=== PATIENT | female | born 1940 | race Two or more races ===

== ENCOUNTER 2024-10-31 07:57 | Inpatient (IN) | payer OTHER ==
[~2024-10-31] VITALS: Ht 165.1 cm; Wt 52.2 kg
[2024-10-31] MEDS ORDERED: LISINOPRIL10 MG PO (08:12)
[2024-10-31] MEDS ORDERED: LEVETIRACETAM250 MG PO (08:12)
[2024-10-31] MEDS ORDERED: METOPROLOL SUCC25 MG PO (08:12)
[2024-10-31] MEDS ORDERED: ACETAMINOPHEN 325 MG TABLET PO ONE (09:15)
[2024-10-31] MEDS ORDERED: 0.9 % SODIUM CHLORIDE 1,000 ML IV ONE (09:15)
[2024-10-31] MEDS ORDERED: PIPERACILLIN/TAZOBACTAM SODIUM 3.375 GM VIAL IV ONE (09:15)
[2024-10-31] MEDS ORDERED: PANTOPRAZOLE SODIUM 40 MG/VIAL VIAL IV ONE (09:15)
[2024-10-31 10:30] LABS: INR 1.16
[2024-10-31 10:34] LABS: ALT/SGPT 11.0 U/L (12-78); AST/SGOT 18.0 U/L (15-37); BILIRUBIN TOTAL 0.36 mg/dL (0.3-1.2); BUN CREA RATIO 17.0 (7.0-25.0); CREATININE SERUM 0.7 mg/dL (0.55-1.02); GFR 80.11; GLOBULINA 6.3 G/DL (2.4-3.5); GLUCOSE FASTING 92.0 mg/dL (65-100); OSMOLALITY SERUM 271.0 MOSM/KG (275-295)
[2024-10-31 11:35] LABS: BASO % 0.2 % (0.1-1.2); EOS # 0.02 (0.04-0.54); EOS % 0.1 % (0.7-7.0); LYMPH # 1.24 (1.18-3.74); LYMPH % 4.6 % (19.3-53.1); MEAN PLATELET VOLUME 9.10 fl (9.4-12.4); MONO # 1.34 (0.24-0.82); MONO % 4.9 % (4.7-12.5); NEUT # 24.41 (1.56-6.13); NEUT % 89.5 % (34.0-71.1); RED CELL DISTRIBUTION WIDTH 15.1 % (11.6-14.4)
[2024-10-31 14:26] LABS: URINE APPEARANCE Turbid; URINE BILIRRUBIN Negative (NEGATIVE); URINE BLOOD Moderate; URINE COLOR Dark Yellow; URINE GLUCOSE Negative (NEGATIVE); URINE KETONE Negative (NEGATIVE); URINE LEUKOCYTE Large; URINE NITRATE Negative; URINE UROBILINOGEN 0.2 E.U./dl
[2024-10-31 14:31] LABS: URINE BACTERIA 6215.1 uL (0.0-1933); URINE RBC 61.2 uL (0.0-20.8)
[2024-10-31 14:58] LABS: TYPE CELLS SQUAMOUS; URINE CAST 1.05 uL (0.0-1.40); URINE EPITHELIAL CELLS > 201.7 uL (0.0-38.8); URINE PROTEIN 100 (NEGATIVE); URINE WBC > 5548.3 uL (0.0-23.2)
[2024-10-31] MEDS ORDERED: ONDANSETRON HCL 2 MG/ML VIAL IV PRN (17:15)
[2024-10-31] MEDS ORDERED: RINGERS SOLUTION,LACTATED 1,000 ML IV SCH (17:15)
[2024-10-31] MEDS ORDERED: MORPHINE SULFATE 4 MG/ML VIAL IV PRN (17:15)
[2024-10-31] MEDS ORDERED: MORPHINE SULFATE 4 MG/ML CARTRIDGE IV PRN (17:45)
[2024-10-31] MEDS ORDERED: PIPERACILLIN/TAZOBACTAM SODIUM 3.375 GM in 0.9 % SODIUM CHLORIDE 100 ML IV SCH (18:00)
[2024-10-31 19:31] LABS: BASO % 0.2 % (0.1-1.2); EOS # 0.02 (0.04-0.54); EOS % 0.1 % (0.7-7.0); LYMPH # 1.37 (1.18-3.74); LYMPH % 5.5 % (19.3-53.1); MEAN PLATELET VOLUME 8.40 fl (9.4-12.4); MONO # 1.13 (0.24-0.82); MONO % 4.6 % (4.7-12.5); NEUT # 21.94 (1.56-6.13); NEUT % 88.9 % (34.0-71.1); RED CELL DISTRIBUTION WIDTH 15.0 % (11.6-14.4)
[2024-10-31 19:59] LABS: FECAL LEUKOCYTES POSITIVE (NEGATIVE); ob POSITIVE (NEGATIVE)
[2024-10-31 20:04] LABS: INR 1.14
[2024-10-31 20:13] LABS: ALT/SGPT 9.0 U/L (12-78); AST/SGOT 20.0 U/L (15-37); BILIRUBIN TOTAL 0.39 mg/dL (0.3-1.2); BUN CREA RATIO 16.0 (7.0-25.0); CREATININE SERUM 0.73 mg/dL (0.55-1.02); GFR 76.32; GLOBULINA 5.4 G/DL (2.4-3.5); GLUCOSE FASTING 91.0 mg/dL (65-100); OSMOLALITY SERUM 271.0 MOSM/KG (275-295)
[2024-10-31 20:20] VITALS: BP 146/78; O2SAT 96
[2024-10-31] MEDS ORDERED: FAMOTIDINE/PF 20 MG/2 ML VIAL IV SCH (21:00)
[2024-10-31 21:09] VITALS: BP 134/72
[2024-11-01 00:50] VITALS: BP 141/75; O2SAT 95
[2024-11-01 06:52] LABS: BASO % 0.2 % (0.1-1.2); EOS # 0.01 (0.04-0.54); EOS % 0.0 % (0.7-7.0); LYMPH # 1.27 (1.18-3.74); LYMPH % 5.0 % (19.3-53.1); MEAN PLATELET VOLUME 8.90 fl (9.4-12.4); MONO # 1.45 (0.24-0.82); MONO % 5.7 % (4.7-12.5); NEUT # 22.53 (1.56-6.13); NEUT % 88.4 % (34.0-71.1); RED CELL DISTRIBUTION WIDTH 15.2 % (11.6-14.4)
[2024-11-01 07:36] LABS: BUN CREA RATIO 15.0 (7.0-25.0); CREATININE SERUM 0.72 mg/dL (0.55-1.02); GFR 77.55; GLUCOSE FASTING 68.0 mg/dL (65-100); OSMOLALITY SERUM 272.0 MOSM/KG (275-295)
[2024-11-01] MEDS ORDERED: AMINO ACIDS/PROTEIN HYDROLYS 30 ML BLIST.PACK PO SCH (09:00)
[2024-11-01] MEDS ORDERED: LACTOBACILLUS ACIDOPHILUS 1 CAP CAP PO SCH (09:00)
[2024-11-01] MEDS ORDERED: MEGESTROL ACETATE 400 MG/10 ML BLIST PACK PO SCH (09:00)
[2024-11-01] MEDS ORDERED: MULTIVIT INFUSN,ADULT 4,VIT K 10 ML VIAL IV SCH (09:00)
[2024-11-01 09:06] VITALS: BP 137/70; O2SAT 97
[2024-11-01] MEDS ORDERED: MEGESTROL ACETATE 400 MG/10 ML BLIST PACK PO NR (13:45)
[2024-11-01] MEDS ORDERED: ENALAPRILAT DIHYDRATE 1.25 MG/ML VIAL IV PRN (14:00)
[2024-11-01] MEDS ORDERED: METOPROLOL SUCCINATE 25 MG TAB.SR.24H PO NR (14:15)
[2024-11-01] MEDS ORDERED: Cyanocobalamin/Mecobalamin 1 TAB.SL SL NR (14:15)
[2024-11-01] MEDS ORDERED: SOD FERRIC GLUC COMPLX/SUCROSE 62.5 MG in 0.9 % SODIUM CHLORIDE 50 ML IV NR (14:15)
[2024-11-01 16:25] VITALS: BP 135/72; O2SAT 95
[2024-11-01] MEDS ORDERED: AMINO ACIDS 1 EACH TABLET PO SCH (17:00)
[2024-11-01] MEDS ORDERED: ENOXAPARIN SODIUM 40 MG/0.4 ML SYRINGE SUBCUTANEO SCH (17:00)
[2024-11-01] MEDS ORDERED: EMOLLIENT COMBINATION NO.92 2.5 OZ BOTTLE TOP SCH (17:00)
[2024-11-01] MEDS ORDERED: MEROPENEM 500 MG/VIAL VIAL IV SCH (18:00)
[2024-11-01] MEDS ORDERED: VANCOMYCIN HCL 5 MG/ML REDILUIDO IV SCH (21:00)
[2024-11-02 01:34] VITALS: BP 108/73; O2SAT 97
[2024-11-02] MEDS ORDERED: METOPROLOL SUCCINATE 25 MG TAB.SR.24H PO SCH (09:00)
[2024-11-02] MEDS ORDERED: Cyanocobalamin/Mecobalamin 1 TAB.SL SL SCH (09:00)
[2024-11-02] MEDS ORDERED: SOD FERRIC GLUC COMPLX/SUCROSE 62.5 MG in 0.9 % SODIUM CHLORIDE 50 ML IV SCH (09:00)
[2024-11-02 17:27] VITALS: BP 139/77; O2SAT 98
[2024-11-03 01:22] VITALS: BP 120/79; O2SAT 99
[2024-11-03 07:49] LABS: ALT/SGPT 7.0 U/L (12-78); AST/SGOT 15.0 U/L (15-37); BILIRUBIN TOTAL 0.47 mg/dL (0.3-1.2); BUN CREA RATIO 12.0 (7.0-25.0); CREATININE SERUM 0.5 mg/dL (0.55-1.02); GFR 118.12; GLOBULINA 4.4 G/DL (2.4-3.5); GLUCOSE FASTING 89.0 mg/dL (65-100); OSMOLALITY SERUM 269.0 MOSM/KG (275-295)
[2024-11-03 08:25] LABS: BASO % 0.3 % (0.1-1.2); EOS # 0.01 (0.04-0.54); EOS % 0.0 % (0.7-7.0); LYMPH # 1.32 (1.18-3.74); LYMPH % 5.0 % (19.3-53.1); MEAN PLATELET VOLUME 9.00 fl (9.4-12.4); MONO # 1.62 (0.24-0.82); MONO % 6.1 % (4.7-12.5); NEUT # 23.16 (1.56-6.13); NEUT % 87.9 % (34.0-71.1); RED CELL DISTRIBUTION WIDTH 14.6 % (11.6-14.4)
[2024-11-03 08:53] VITALS: BP 154/71; O2SAT 97
[2024-11-03] MEDS ORDERED: POTASSIUM CHLORIDE IN WATER 100 ML IV NR (13:00)
[2024-11-03 16:22] VITALS: BP 134/74; O2SAT 97
[2024-11-04 00:30] VITALS: BP 111/69; O2SAT 98
[2024-11-04 08:57] VITALS: BP 130/67; O2SAT 99
[2024-11-04] MEDS ORDERED: ACETAMINOPHEN 500 MG GEL..CAP PO SCH (14:48)
[2024-11-04] MEDS ORDERED: MEPERIDINE HCL/PF 25 MG/ML VIAL IV PRN (15:00)
[2024-11-04 16:14] VITALS: BP 149/75; O2SAT 99
[2024-11-05 01:02] VITALS: BP 116/69; O2SAT 99
[2024-11-05 06:48] LABS: BASO % 0.2 % (0.1-1.2); EOS # 0.02 (0.04-0.54); EOS % 0.1 % (0.7-7.0); LYMPH # 0.99 (1.18-3.74); LYMPH % 5.7 % (19.3-53.1); MEAN PLATELET VOLUME 8.80 fl (9.4-12.4); MONO # 1.10 (0.24-0.82); MONO % 6.4 % (4.7-12.5); NEUT # 15.04 (1.56-6.13); NEUT % 86.8 % (34.0-71.1); RED CELL DISTRIBUTION WIDTH 15.9 % (11.6-14.4)
[2024-11-05 07:35] LABS: ALT/SGPT 12.0 U/L (12-78); AST/SGOT 21.0 U/L (15-37); BILIRUBIN TOTAL 0.48 mg/dL (0.3-1.2); BUN CREA RATIO 22.0 (7.0-25.0); CREATININE SERUM 0.36 mg/dL (0.55-1.02); GFR 172.57; GLOBULINA 3.6 G/DL (2.4-3.5); GLUCOSE FASTING 82.0 mg/dL (65-100); OSMOLALITY SERUM 284.0 MOSM/KG (275-295)
[2024-11-05 08:00] VITALS: BP 176/84; O2SAT 97
[2024-11-05] MEDS ORDERED: POTASSIUM CHLORIDE 20MEQ/100ML H2O PB IV NR (10:15)
[2024-11-05 11:18] LABS: FOLIC ACID 6.27 ng/ml (4.78-20)
[2024-11-05 16:00] VITALS: BP 168/78; O2SAT 98
[2024-11-05] MEDS ORDERED: VANCOMYCIN HCL 1,000 MG VIAL IV SCH (21:00)
[2024-11-05 21:10] LABS: URINE APPEARANCE Turbid; URINE BILIRRUBIN Negative (NEGATIVE); URINE BLOOD Moderate; URINE COLOR Yellow; URINE GLUCOSE Negative (NEGATIVE); URINE KETONE Trace (NEGATIVE); URINE LEUKOCYTE Large; URINE NITRATE Negative; URINE PROTEIN 30 (NEGATIVE); URINE UROBILINOGEN 0.2 E.U./dl
[2024-11-05 21:11] LABS: URINE BACTERIA 9469.2 uL (0.0-1933); URINE EPITHELIAL CELLS 48.7 uL (0.0-38.8); URINE RBC 14.8 uL (0.0-20.8)
[2024-11-05 21:20] LABS: URINE CAST 0.26 uL (0.0-1.40); URINE WBC > 5548.3 uL (0.0-23.2)
[2024-11-05 21:35] VITALS: BP 181/81
[2024-11-06 01:02] VITALS: BP 179/72; O2SAT 98
[2024-11-06] MEDS ORDERED: ENOXAPARIN SODIUM 60 MG/0.6 ML SYRINGE SUBCUTANEO SCH (09:00)
[2024-11-06] MEDS ORDERED: LISINOPRIL 10 MG TABLET PO SCH (09:00)
[2024-11-06 09:48] VITALS: BP 167/76; O2SAT 98
[2024-11-06] MEDS ORDERED: VANCOMYCIN HCL 1,000 MG VIAL ONE (15:37)
[2024-11-06 16:29] VITALS: BP 148/75; O2SAT 94
[2024-11-07 01:33] VITALS: BP 148/76; O2SAT 98
[2024-11-07] MEDS ORDERED: VANCOMYCIN HCL 1,000 MG VIAL ONE (06:08)
[2024-11-07 07:01] LABS: BASO % 0.2 % (0.1-1.2); EOS # 0.06 (0.04-0.54); EOS % 0.4 % (0.7-7.0); LYMPH # 1.71 (1.18-3.74); LYMPH % 10.2 % (19.3-53.1); MEAN PLATELET VOLUME 8.90 fl (9.4-12.4); MONO # 1.01 (0.24-0.82); MONO % 6.0 % (4.7-12.5); NEUT # 13.93 (1.56-6.13); NEUT % 82.8 % (34.0-71.1); RED CELL DISTRIBUTION WIDTH 16.2 % (11.6-14.4)
[2024-11-07 07:17] LABS: ALT/SGPT 10.0 U/L (12-78); AST/SGOT 14.0 U/L (15-37); BILIRUBIN TOTAL 0.24 mg/dL (0.3-1.2); BUN CREA RATIO 21.0 (7.0-25.0); CREATININE SERUM 0.42 mg/dL (0.55-1.02); GFR 144.44; GLOBULINA 4.3 G/DL (2.4-3.5); GLUCOSE FASTING 79.0 mg/dL (65-100); OSMOLALITY SERUM 288.0 MOSM/KG (275-295)
[2024-11-07 08:00] VITALS: BP 170/80; O2SAT 97
[2024-11-07] MEDS ORDERED: MAGNESIUM SULFATE IN WATER 50 ML IV NR (12:00)
[2024-11-07] MEDS ORDERED: POTASSIUM CHLORIDE 20MEQ/100ML H2O PB IV NR (12:00)
[2024-11-07] MEDS ORDERED: SODIUM CHLORIDE 0.45 % 1,000 ML IV SCH (12:00)
[2024-11-07 17:34] VITALS: BP 140/73; O2SAT 99
[2024-11-08 00:40] VITALS: BP 139/81; O2SAT 98
[2024-11-08 08:00] VITALS: BP 160/82; O2SAT 98
[2024-11-08] MEDS ORDERED: LISINOPRIL 10 MG TABLET PO STA (11:11)
[2024-11-08 16:48] VITALS: BP 148/83; O2SAT 97
[2024-11-09] VITALS: BP 138/72; O2SAT 97
[2024-11-09 07:17] LABS: BASO % 0.2 % (0.1-1.2); EOS # 0.07 (0.04-0.54); EOS % 0.5 % (0.7-7.0); LYMPH # 1.70 (1.18-3.74); LYMPH % 11.0 % (19.3-53.1); MEAN PLATELET VOLUME 8.80 fl (9.4-12.4); MONO # 0.83 (0.24-0.82); MONO % 5.4 % (4.7-12.5); NEUT # 12.73 (1.56-6.13); NEUT % 82.4 % (34.0-71.1); RED CELL DISTRIBUTION WIDTH 16.2 % (11.6-14.4)
[2024-11-09 08:08] LABS: ALT/SGPT 9.0 U/L (12-78); AST/SGOT 14.0 U/L (15-37); BILIRUBIN TOTAL 0.28 mg/dL (0.3-1.2); BUN CREA RATIO 19.0 (7.0-25.0); CREATININE SERUM 0.53 mg/dL (0.55-1.02); GFR 110.44; GLOBULINA 4.5 G/DL (2.4-3.5); GLUCOSE FASTING 65.0 mg/dL (65-100); OSMOLALITY SERUM 286.0 MOSM/KG (275-295)
[2024-11-09 08:30] VITALS: BP 148/78
[2024-11-09] MEDS ORDERED: LISINOPRIL 20 MG TABLET PO SCH ×2 (09:00)
[2024-11-09 15:56] VITALS: BP 169/85; O2SAT 98
[2024-11-09] MEDS ORDERED: FLUCONAZOLE IN NACL,ISO-OSM 200 MG/100 ML PIGGYBAG IV NR (17:00)
[2024-11-09 20:00] VITALS: BP 159/62; O2SAT 96
[2024-11-09] MEDS ORDERED: VANCOMYCIN HCL 1,000 MG VIAL ONE (20:18)
[2024-11-09] MEDS ORDERED: APIXABAN 5 MG TABLET PO ONE (20:18)
[2024-11-09] MEDS ORDERED: VANCOMYCIN HCL 1,000 MG VIAL IV SCH (21:00)
[2024-11-09] MEDS ORDERED: APIXABAN 5 MG TABLET PO SCH (21:00)
[2024-11-10 00:15] VITALS: BP 135/73; O2SAT 97
[2024-11-10 09:50] VITALS: BP 170/85; O2SAT 98
[2024-11-10] MEDS ORDERED: VANCOMYCIN HCL 1,000 MG VIAL ONE (14:56)
[2024-11-10 16:00] VITALS: BP 114/59; O2SAT 97
[2024-11-10] MEDS ORDERED: FLUCONAZOLE IN NACL,ISO-OSM 2 MG/ML ML IV SCH (17:00)
[2024-11-11 01:31] VITALS: BP 128/67; O2SAT 97
[2024-11-11 08:43] VITALS: BP 173/81; O2SAT 95
[2024-11-11 11:11] VITALS: BP 145/72; O2SAT 96
[2024-11-11 16:00] VITALS: BP 159/79; O2SAT 97
[2024-11-11] MEDS ORDERED: VANCOMYCIN HCL 1,000 MG VIAL ONE (16:11)
[2024-11-12 02:58] VITALS: BP 144/82; BP 156/75; O2SAT 96; O2SAT 97
[2024-11-12 06:52] LABS: BASO % 0.2 % (0.1-1.2); EOS # 0.08 (0.04-0.54); EOS % 0.6 % (0.7-7.0); LYMPH # 1.64 (1.18-3.74); LYMPH % 12.3 % (19.3-53.1); MEAN PLATELET VOLUME 8.90 fl (9.4-12.4); MONO # 0.90 (0.24-0.82); MONO % 6.7 % (4.7-12.5); NEUT # 10.62 (1.56-6.13); NEUT % 79.5 % (34.0-71.1); RED CELL DISTRIBUTION WIDTH 16.4 % (11.6-14.4)
[2024-11-12 07:22] LABS: ALT/SGPT 8.0 U/L (12-78); AST/SGOT 15.0 U/L (15-37); BILIRUBIN TOTAL 0.46 mg/dL (0.3-1.2); BUN CREA RATIO 22.0 (7.0-25.0); CREATININE SERUM 0.68 mg/dL (0.55-1.02); GFR 82.84; GLOBULINA 4.5 G/DL (2.4-3.5); GLUCOSE FASTING 80.0 mg/dL (65-100); OSMOLALITY SERUM 288.0 MOSM/KG (275-295)
[2024-11-12 07:32] LABS: ERYTHROCYTE SEDIMENTATION RATE 123 mm/hr (0-30)
[2024-11-12 08:00] VITALS: BP 160/76; O2SAT 97
[2024-11-12] MEDS ORDERED: AMLODIPINE BESYLATE 5 MG TABLET PO NR (12:30)
[2024-11-12 17:26] VITALS: BP 145/68; O2SAT 96
[2024-11-13 00:29] VITALS: BP 151/70; O2SAT 96
[2024-11-13 08:00] VITALS: BP 150/82; O2SAT 97
[2024-11-13] MEDS ORDERED: AMLODIPINE BESYLATE 5 MG TABLET PO SCH (09:00)
[2024-11-13 16:00] VITALS: BP 153/76; O2SAT 95
[2024-11-13] MEDS ORDERED: VANCOMYCIN HCL 5 MG/ML REDILUIDO IV SCH (21:00)
[2024-11-14 01:01] VITALS: BP 121/59; O2SAT 97
[2024-11-14 08:00] VITALS: BP 147/77; O2SAT 98
[2024-11-14 09:49] LABS: BASO % 0.3 % (0.1-1.2); EOS # 0.06 (0.04-0.54); EOS % 0.4 % (0.7-7.0); LYMPH # 1.46 (1.18-3.74); LYMPH % 10.0 % (19.3-53.1); MEAN PLATELET VOLUME 8.90 fl (9.4-12.4); MONO # 1.10 (0.24-0.82); MONO % 7.6 % (4.7-12.5); NEUT # 11.81 (1.56-6.13); NEUT % 81.2 % (34.0-71.1); RED CELL DISTRIBUTION WIDTH 16.6 % (11.6-14.4)
[2024-11-14 10:31] LABS: BUN CREA RATIO 18.0 (7.0-25.0); CREATININE SERUM 0.61 mg/dL (0.55-1.02); GFR 93.9; GLUCOSE FASTING 106.0 mg/dL (65-100); OSMOLALITY SERUM 289.0 MOSM/KG (275-295)
[2024-11-14] MEDS ORDERED: MAGNESIUM SULFATE IN WATER 50 ML IV NR (12:00)
[2024-11-14] MEDS ORDERED: POTASSIUM PHOS,M-BASIC-D-BASIC 3 MM/ML VIAL IV ONE (14:00)
[2024-11-14 16:00] VITALS: BP 131/70; O2SAT 96
[2024-11-14] MEDS ORDERED: POTASSIUM CHLORIDE 20MEQ/100ML H2O PB IV NR (16:00)
[2024-11-15 01:54] VITALS: BP 135/64; O2SAT 95
[2024-11-15 08:00] VITALS: BP 111/64; O2SAT 97
[2024-11-15 16:00] VITALS: BP 146/56; O2SAT 97
[2024-11-16 02:16] VITALS: BP 102/52; O2SAT 96
[2024-11-16 08:00] VITALS: BP 95/63; O2SAT 95
[2024-11-16 14:18] VITALS: BP 130/70; O2SAT 99
[2024-11-16 16:00] VITALS: BP 150/77; O2SAT 98
[2024-11-17 01:34] VITALS: BP 125/69; O2SAT 100
[2024-11-17 08:00] VITALS: BP 143/80; O2SAT 95
[2024-11-17 16:00] VITALS: BP 124/55; O2SAT 100
[2024-11-18 01:25] VITALS: BP 146/68; O2SAT 98
[2024-11-18 08:00] VITALS: BP 118/60; O2SAT 97
[2024-11-18 16:00] VITALS: BP 110/66; O2SAT 98
[2024-11-19 06:44] LABS: BASO % 0.4 % (0.1-1.2); EOS # 0.06 (0.04-0.54); EOS % 0.5 % (0.7-7.0); LYMPH # 1.98 (1.18-3.74); LYMPH % 17.6 % (19.3-53.1); MEAN PLATELET VOLUME 8.90 fl (9.4-12.4); MONO # 0.83 (0.24-0.82); MONO % 7.4 % (4.7-12.5); NEUT # 8.29 (1.56-6.13); NEUT % 73.7 % (34.0-71.1); RED CELL DISTRIBUTION WIDTH 16.1 % (11.6-14.4)
[2024-11-19 09:04] LABS: GLUCOSE FASTING 80.0 mg/dL (65-100)
[2024-11-19 09:05] LABS: ALT/SGPT 21.0 U/L (12-78); AST/SGOT 17.0 U/L (15-37); BILIRUBIN TOTAL 0.28 mg/dL (0.3-1.2); BUN CREA RATIO 32.0 (7.0-25.0); CREATININE SERUM 0.59 mg/dL (0.55-1.02); GFR 97.58; GLOBULINA 4.7 G/DL (2.4-3.5); OSMOLALITY SERUM 288.0 MOSM/KG (275-295)
[2024-11-19 09:46] VITALS: BP 119/53; O2SAT 96
[2024-11-19] MEDS ORDERED: ELIQUIS5 MG PO (10:01)
[2024-11-19] MEDS ORDERED: INTESTINEX680 M1 PO (10:02)
[2024-11-19] MEDS ORDERED: MEGESTROL400 MG/10 PO (10:02)
[2024-11-19 16:00] VITALS: BP 126/55; O2SAT 96
== END 2024-11-19 22:11 | disposition home or self-care (01) | DRG 393 ==
LOC: ER 07:57 → SURH 17:57
PROVIDERS: General Practice; Internal Medicine; Internal Medicine Geriatric Medicine; Internal Medicine Infectious Disease; ADMIT Surgery; ATTEND Surgery
PROC: BW21YZZ Computerized Tomography (CT Scan) of Abdomen and Pelvis using Other Contrast (ICD-10-PCS; 2024-10-31)
PROC: B24BZZZ Ultrasonography of Heart with Aorta (ICD-10-PCS; 2024-11-03)
PROC: B54PZZZ Ultrasonography of Bilateral Upper Extremity Veins (ICD-10-PCS; 2024-11-04)
PROC: BW28ZZZ Computerized Tomography (CT Scan) of Head (ICD-10-PCS; 2024-11-06)
PROC: 02HV33Z Insertion of Infusion Device into Superior Vena Cava, Percutaneous Approach (ICD-10-PCS; principal; 2024-11-07)
PROC: 30233N1 Transfusion of Nonautologous Red Blood Cells into Peripheral Vein, Percutaneous Approach (ICD-10-PCS; 2024-11-07)
PROC: B24BZZZ Ultrasonography of Heart with Aorta (ICD-10-PCS; 2024-11-12)
DX: K63.1 Perforation of intestine (nontraumatic) (principal); A41.9 Sepsis, unspecified organism; C19 Malignant neoplasm of rectosigmoid junction; N13.30 Unspecified hydronephrosis; N39.0 Urinary tract infection, site not specified; I82.621 Acute embolism and thrombosis of deep veins of right upper extremity; I10 Essential (primary) hypertension; E78.5 Hyperlipidemia, unspecified; D63.0 Anemia in neoplastic disease; Z86.718 Personal history of other venous thrombosis and embolism; I07.9 Rheumatic tricuspid valve disease, unspecified; D75.838 Other thrombocytosis

== ENCOUNTER 2024-12-16 11:05 | Inpatient (IN) | payer OTHER ==
[~2024-12-16] VITALS: Ht 152.4 cm; Wt 55.3 kg
[~2024-12-16 11:05] MED LIST: ELIQUIS5 MG PO; INTESTINEX680 M1 PO; LEVETIRACETAM250 MG PO; LISINOPRIL10 MG PO; MEGESTROL400 MG/10 PO; METOPROLOL SUCC25 MG PO
--- NOTE | 2024-12-16 11:15 | NUR ---
SE RECIBE PTE ALERTA Y ORIENTADA X3 EN AMBULANCIA. PTE REFIERE VENIR CON REFERIDO DE LEW WATSON PARA ADMISION PARA OPERACION EL 12/19. SE MIDE SV Y SE UBICA
[2024-12-16] MEDS ORDERED: 0.9 % SODIUM CHLORIDE 1,000 ML IV SCH ×2 (11:45→19:15)
[2024-12-16] MEDS ORDERED: PIPERACILLIN/TAZOBACTAM SODIUM 3.375 GM VIAL IV ONE (11:45)
[2024-12-16 13:14] LABS: BASO % 0.2 % (0.1-1.2); EOS # 0.11 (0.04-0.54); EOS % 0.4 % (0.7-7.0); LYMPH # 1.30 (1.18-3.74); LYMPH % 5.1 % (19.3-53.1); MEAN PLATELET VOLUME 8.50 fl (9.4-12.4); MONO # 2.17 (0.24-0.82); MONO % 8.6 % (4.7-12.5); NEUT # 21.27 (1.56-6.13); NEUT % 84.0 % (34.0-71.1); RED CELL DISTRIBUTION WIDTH 16.8 % (11.6-14.4)
--- NOTE | 2024-12-16 13:17 | NUR ---
SE ORIENTA PTE SOHRE TX A SEGUIR, LA MISMA REFIERE ENTENDER. SE MARY MUESTRA DE LAB, SE CANALIZA Y SE ADMINISYRA MED NICOLE ORDEN MEDICA
[2024-12-16 13:34] LABS: INR 1.2
[2024-12-16 13:37] LABS: ALT/SGPT 72.0 U/L (12-78); AST/SGOT 36.0 U/L (15-37); BILIRUBIN TOTAL 0.46 mg/dL (0.3-1.2); BUN CREA RATIO 44.0 (7.0-25.0); CREATININE SERUM 1.47 mg/dL (0.55-1.02); GFR 34.03; GLOBULINA 5.7 G/DL (2.4-3.5); GLUCOSE FASTING 69.0 mg/dL (65-100); OSMOLALITY SERUM 294.0 MOSM/KG (275-295)
[2024-12-16 14:28] LABS: COVID-19 AG NEGATIVE (NEGATIVE)
[2024-12-16] MEDS ORDERED: ENOXAPARIN SODIUM 30 MG/0.3 ML SYRINGE SUBCUTANEO SCH (19:16)
[2024-12-16] MEDS ORDERED: VANCOMYCIN HCL 500 MG VIAL IV SCH (19:16)
[2024-12-16] MEDS ORDERED: METOPROLOL TARTRATE 25 MG TABLET PO SCH (19:20)
[2024-12-16] MEDS ORDERED: LISINOPRIL 20 MG TABLET PO SCH (19:20)
[2024-12-16] MEDS ORDERED: PANTOPRAZOLE SODIUM 40 MG in 0.9 % SODIUM CHLORIDE 8 ML IV PUSH SCH (19:27)
[2024-12-16] MEDS ORDERED: ACETAMINOPHEN 325 MG TABLET PO PRN (19:30)
[2024-12-16] MEDS ORDERED: ONDANSETRON HCL 4 MG in 0.9 % SODIUM CHLORIDE 50 ML IV PRN (19:30)
[2024-12-16 19:39] VITALS: BP 108/60
[2024-12-16] MEDS ORDERED: MEROPENEM 1,000 MG in 0.9 % SODIUM CHLORIDE 100 ML IV SCH (21:00)
[2024-12-16] MEDS ORDERED: LevETIRAcetam 500 MG TAB. PO SCH (21:49)
[2024-12-16 22:28] LABS: ABG PH 7.450 (7.35-7.45); ABG PO2 86.5 mmHg (80-100); BICARBONATE 14.9 mmol/l (23-25)
[2024-12-16 22:30] LABS: o2 21 %
[2024-12-17 03:34] VITALS: BP 117/68; O2SAT 98
[2024-12-17 06:22] LABS: BASO % 0.2 % (0.1-1.2); EOS # 0.08 (0.04-0.54); EOS % 0.3 % (0.7-7.0); LYMPH # 1.74 (1.18-3.74); LYMPH % 6.6 % (19.3-53.1); MEAN PLATELET VOLUME 9.10 fl (9.4-12.4); MONO # 2.24 (0.24-0.82); MONO % 8.5 % (4.7-12.5); NEUT # 21.58 (1.56-6.13); NEUT % 82.0 % (34.0-71.1); RED CELL DISTRIBUTION WIDTH 17.1 % (11.6-14.4)
[2024-12-17 06:43] LABS: ALT/SGPT 52.0 U/L (12-78); AST/SGOT 22.0 U/L (15-37); BILIRUBIN TOTAL 0.87 mg/dL (0.3-1.2); BUN CREA RATIO 38.0 (7.0-25.0); CREATININE SERUM 1.61 mg/dL (0.55-1.02); GFR 30.64; GLOBULINA 4.2 G/DL (2.4-3.5); GLUCOSE FASTING 98.0 mg/dL (65-100); OSMOLALITY SERUM 300.0 MOSM/KG (275-295)
[2024-12-17 08:01] VITALS: BP 103/66; O2SAT 97
[2024-12-17 09:29] VITALS: O2SAT 99
[2024-12-17] MEDS ORDERED: hydrALAZINE HCL 20 MG VIAL IV PRN (15:30)
[2024-12-17] MEDS ORDERED: Cyanocobalamin/Mecobalamin 1 TAB.SL SL NR (15:45)
[2024-12-17] MEDS ORDERED: SOD FERRIC GLUC COMPLX/SUCROSE 62.5 MG in 0.9 % SODIUM CHLORIDE 50 ML IV NR (15:45)
[2024-12-17 16:00] VITALS: BP 122/68; O2SAT 97
[2024-12-17] MEDS ORDERED: AMINO ACIDS/PROTEIN HYDROLYS 30 ML BLIST.PACK PO SCH (17:00)
[2024-12-17] MEDS ORDERED: EMOLLIENT COMBINATION NO.92 2.5 OZ BOTTLE TOP SCH (17:00)
[2024-12-17] MEDS ORDERED: VANCOMYCIN HCL 5 MG/ML REDILUIDO IV SCH (21:00)
[2024-12-17] MEDS ORDERED: MEROPENEM 500 MG/VIAL VIAL IV SCH (21:00)
[2024-12-18 01:08] LABS: URINE APPEARANCE Cloudy; URINE BILIRRUBIN Negative (NEGATIVE); URINE BLOOD Large; URINE COLOR Yellow; URINE GLUCOSE Negative (NEGATIVE); URINE KETONE Negative (NEGATIVE); URINE LEUKOCYTE Large; URINE NITRATE Negative; URINE PROTEIN 30 (NEGATIVE); URINE UROBILINOGEN 0.2 E.U./dl
[2024-12-18 01:11] LABS: URINE BACTERIA 313.1 uL (0.0-1933); URINE EPITHELIAL CELLS 5.6 uL (0.0-38.8); URINE RBC 13.3 uL (0.0-20.8); URINE WBC 2637.9 uL (0.0-23.2)
[2024-12-18 01:40] LABS: URINE CAST 0.43 uL (0.0-1.40)
[2024-12-18 02:06] VITALS: BP 81/52; O2SAT 97
[2024-12-18 07:13] LABS: BASO % 0.2 % (0.1-1.2); EOS # 0.04 (0.04-0.54); EOS % 0.1 % (0.7-7.0); LYMPH # 0.82 (1.18-3.74); LYMPH % 2.7 % (19.3-53.1); MEAN PLATELET VOLUME 9.70 fl (9.4-12.4); MONO # 2.07 (0.24-0.82); MONO % 6.9 % (4.7-12.5); NEUT # 26.06 (1.56-6.13); NEUT % 87.4 % (34.0-71.1); RED CELL DISTRIBUTION WIDTH 16.0 % (11.6-14.4)
[2024-12-18 08:00] VITALS: BP 115/70; O2SAT 96
[2024-12-18 08:01] LABS: ALT/SGPT 36.0 U/L (12-78); AST/SGOT 23.0 U/L (15-37); BILIRUBIN TOTAL 1.05 mg/dL (0.3-1.2); BUN CREA RATIO 39.0 (7.0-25.0); CREATININE SERUM 1.25 mg/dL (0.55-1.02); GFR 41.03; GLOBULINA 4.5 G/DL (2.4-3.5); GLUCOSE FASTING 136.0 mg/dL (65-100); LDH 274.0 U/L (84-246); OSMOLALITY SERUM 298.0 MOSM/KG (275-295)
[2024-12-18] MEDS ORDERED: MEGESTROL ACETATE 400 MG/10 ML BLIST PACK PO SCH (09:00)
[2024-12-18] MEDS ORDERED: Cyanocobalamin/Mecobalamin 1 TAB.SL SL SCH (09:00)
[2024-12-18] MEDS ORDERED: ENOXAPARIN SODIUM 60 MG/0.6 ML SYRINGE SUBCUTANEO SCH (09:00)
[2024-12-18] MEDS ORDERED: SOD FERRIC GLUC COMPLX/SUCROSE 62.5 MG in 0.9 % SODIUM CHLORIDE 50 ML IV SCH (09:00)
[2024-12-18 17:23] VITALS: BP 101/61; O2SAT 97
[2024-12-18 18:49] LABS: BASO % 0.4 % (0.1-1.2); EOS # 0.06 (0.04-0.54); EOS % 0.2 % (0.7-7.0); LYMPH # 1.66 (1.18-3.74); LYMPH % 5.9 % (19.3-53.1); MEAN PLATELET VOLUME 8.80 fl (9.4-12.4); MONO # 2.46 (0.24-0.82); MONO % 8.7 % (4.7-12.5); NEUT # 23.16 (1.56-6.13); NEUT % 81.8 % (34.0-71.1); RED CELL DISTRIBUTION WIDTH 15.9 % (11.6-14.4)
[2024-12-19 01:01] VITALS: BP 103/65; O2SAT 97
[2024-12-19] MEDS ORDERED: MORPHINE SULFATE 4 MG/ML CARTRIDGE IV PRN (11:30)
[2024-12-19] MEDS ORDERED: OxyCODONE HCL 5 MG TABLET (ROXICODONE) PO PRN (11:30)
[2024-12-19] MEDS ORDERED: ONDANSETRON HCL 2 MG/ML VIAL IV PRN (11:30)
[2024-12-19] MEDS ORDERED: THROMBIN,HU/FIBRINOGEN/CALCIUM 10 ML SYRINGE TOP ONE (12:30)
[2024-12-19] MEDS ORDERED: SIMETHICONE 125 MG CAPSULE PO SCH (13:00)
[2024-12-19] MEDS ORDERED: HYOSCYAMINE SULFATE 0.125 MG TAB.SUBL SL SCH (13:00)
[2024-12-19 13:20] VITALS: BP 110/53; O2SAT 100
[2024-12-19] MEDS ORDERED: ACETAMINOPHEN 500 MG GEL..CAP PO SCH (14:00)
[2024-12-19 16:00] VITALS: BP 94/66; O2SAT 100
[2024-12-19] MEDS ORDERED: GABAPENTIN 300 MG CAPSULE PO SCH (17:00)
[2024-12-19 18:13] LABS: BASO % 0.3 % (0.1-1.2); EOS # 0.01 (0.04-0.54); EOS % 0.0 % (0.7-7.0); LYMPH # 1.07 (1.18-3.74); LYMPH % 3.0 % (19.3-53.1); MEAN PLATELET VOLUME 9.20 fl (9.4-12.4); MONO # 1.88 (0.24-0.82); MONO % 5.2 % (4.7-12.5); NEUT # 32.13 (1.56-6.13); NEUT % 89.0 % (34.0-71.1); RED CELL DISTRIBUTION WIDTH 15.9 % (11.6-14.4)
[2024-12-19 20:00] VITALS: BP 96/60; O2SAT 100
[2024-12-19] MEDS ORDERED: FLUCONAZOLE IN NACL,ISO-OSM 400 MG/200 ML PIGGYBAG IV ONE ×2 (20:15→21:14)
[2024-12-19] MEDS ORDERED: FAMOTIDINE/PF 20 MG/2 ML VIAL IV PUSH SCH (21:00)
[2024-12-19] MEDS ORDERED: NOREPINEPHRINE BITARTRATE 1 MG/ML AMPUL IV ONE (23:12)
[2024-12-19 23:20] VITALS: BP 80/51; O2SAT 100
[2024-12-19] MEDS ORDERED: NOREPINEPHRINE BITARTRATE 8 MG in DEXTROSE 5 % IN WATER 250 ML IV SCH (23:45)
[2024-12-20] VITALS (23 sets, daily range): BP systolic 84–109; BP diastolic 43–62; O2SAT 10–100
[2024-12-20 06:14] LABS: BASO % 0.4 % (0.1-1.2); EOS # 0.02 (0.04-0.54); EOS % 0.1 % (0.7-7.0); LYMPH # 1.34 (1.18-3.74); LYMPH % 3.7 % (19.3-53.1); MEAN PLATELET VOLUME 9.10 fl (9.4-12.4); MONO # 1.66 (0.24-0.82); MONO % 4.6 % (4.7-12.5); NEUT # 32.30 (1.56-6.13); NEUT % 88.4 % (34.0-71.1); RED CELL DISTRIBUTION WIDTH 15.9 % (11.6-14.4)
[2024-12-20 07:10] LABS: BUN CREA RATIO 37.0 (7.0-25.0); CREATININE SERUM 1.27 mg/dL (0.55-1.02); GFR 40.28; GLUCOSE FASTING 126.0 mg/dL (65-100); OSMOLALITY SERUM 299.0 MOSM/KG (275-295)
[2024-12-20] MEDS ORDERED: LACTOBACILLUS ACIDOPHILUS 1 CAP CAP PO SCH (09:00)
[2024-12-20] MEDS ORDERED: NOREPINEPHRINE BITARTRATE 1 MG/ML AMPUL IV ONE (09:04)
[2024-12-20] MEDS ORDERED: MAGNESIUM SULFATE IN WATER 50 ML IV NR (12:00)
[2024-12-20] MEDS ORDERED: ENOXAPARIN SODIUM 40 MG/0.4 ML SYRINGE SUBCUTANEO SCH (17:00)
[2024-12-20] MEDS ORDERED: CEFTAZIDIME/AVIBACTAM 1.25GM/100ML NSS PB IV SCH (17:00)
[2024-12-20] MEDS ORDERED: FLUCONAZOLE IN NACL,ISO-OSM 200 MG/100 ML PIGGYBAG IV SCH (21:00)
[2024-12-21] VITALS (23 sets, daily range): BP systolic 70–157; BP diastolic 40–94; O2SAT 99–100
[2024-12-21 06:42] LABS: BASO % 0.3 % (0.1-1.2); EOS # 0.08 (0.04-0.54); EOS % 0.2 % (0.7-7.0); LYMPH # 1.41 (1.18-3.74); LYMPH % 4.0 % (19.3-53.1); MEAN PLATELET VOLUME 9.50 fl (9.4-12.4); MONO # 1.61 (0.24-0.82); MONO % 4.5 % (4.7-12.5); NEUT # 31.21 (1.56-6.13); NEUT % 88.2 % (34.0-71.1); RED CELL DISTRIBUTION WIDTH 16.2 % (11.6-14.4)
[2024-12-21 07:08] LABS: BUN CREA RATIO 42.0 (7.0-25.0); CREATININE SERUM 0.77 mg/dL (0.55-1.02); GFR 71.77; GLUCOSE FASTING 124.0 mg/dL (65-100); OSMOLALITY SERUM 295.0 MOSM/KG (275-295)
[2024-12-21] MEDS ORDERED: FAMOTIDINE/PF 20 MG/2 ML VIAL IV PUSH SCH (09:00)
[2024-12-21] MEDS ORDERED: ENOXAPARIN SODIUM 40 MG/0.4 ML SYRINGE SUBCUTANEO SCH (09:00)
[2024-12-21] MEDS ORDERED: METOCLOPRAMIDE HCL 5 MG/ML VIAL ONE (14:32)
[2024-12-21] MEDS ORDERED: METOCLOPRAMIDE HCL 5 MG/ML VIAL IV PRN (14:45)
[2024-12-21] MEDS ORDERED: AA 4.25%/CAL/LYTES/DEXT 5% 1,000 ML PERIFERAL SCH (17:00)
[2024-12-22] VITALS (22 sets, daily range): BP systolic 87–179; BP diastolic 37–92; O2SAT 95–100
[2024-12-22] MEDS ORDERED: PANTOPRAZOLE SODIUM 80 MG in 0.9 % SODIUM CHLORIDE 100 ML IV SCH (09:45)
[2024-12-22 21:00] LABS: BASO % 0.2 % (0.1-1.2); EOS # 0.03 (0.04-0.54); EOS % 0.1 % (0.7-7.0); LYMPH # 1.50 (1.18-3.74); LYMPH % 4.5 % (19.3-53.1); MEAN PLATELET VOLUME 9.20 fl (9.4-12.4); MONO # 1.20 (0.24-0.82); MONO % 3.6 % (4.7-12.5); NEUT # 29.67 (1.56-6.13); NEUT % 89.4 % (34.0-71.1); RED CELL DISTRIBUTION WIDTH 15.4 % (11.6-14.4)
[2024-12-23] VITALS (22 sets, daily range): BP systolic 97–135; BP diastolic 37–75; O2SAT 95–100
[2024-12-23 06:51] LABS: BUN CREA RATIO 67.0 (7.0-25.0); CREATININE SERUM 0.49 mg/dL (0.55-1.02); GFR 120.91; GLUCOSE FASTING 113.0 mg/dL (65-100); OSMOLALITY SERUM 300.0 MOSM/KG (275-295)
[2024-12-23 07:19] LABS: BASO % 0.3 % (0.1-1.2); EOS # 0.10 (0.04-0.54); EOS % 0.3 % (0.7-7.0); LYMPH # 1.21 (1.18-3.74); LYMPH % 4.2 % (19.3-53.1); MEAN PLATELET VOLUME 9.70 fl (9.4-12.4); MONO # 1.00 (0.24-0.82); MONO % 3.5 % (4.7-12.5); NEUT # 26.08 (1.56-6.13); NEUT % 90.0 % (34.0-71.1); RED CELL DISTRIBUTION WIDTH 15.7 % (11.6-14.4)
[2024-12-23] MEDS ORDERED: SODIUM CHLORIDE 0.45 % 1,000 ML IV SCH (16:15)
[2024-12-23] MEDS ORDERED: MAGNESIUM SULFATE/D5W 100 ML IV NR (17:00)
[2024-12-23] MEDS ORDERED: POTASSIUM CHLORIDE IN WATER 40 MEQ/100 ML PIGGYBAG IV SCH (20:00)
[2024-12-24] VITALS (24 sets, daily range): BP systolic 89–126; BP diastolic 37–76; O2SAT 96–100
[2024-12-24 06:43] LABS: BASO % 0.3 % (0.1-1.2); EOS # 0.14 (0.04-0.54); EOS % 0.6 % (0.7-7.0); LYMPH # 0.94 (1.18-3.74); LYMPH % 3.8 % (19.3-53.1); MEAN PLATELET VOLUME 9.50 fl (9.4-12.4); MONO # 0.95 (0.24-0.82); MONO % 3.9 % (4.7-12.5); NEUT # 21.90 (1.56-6.13); NEUT % 89.6 % (34.0-71.1); RED CELL DISTRIBUTION WIDTH 16.2 % (11.6-14.4)
[2024-12-24 07:11] LABS: ALT/SGPT 9.0 U/L (12-78); AST/SGOT 10.0 U/L (15-37); BILIRUBIN TOTAL 0.72 mg/dL (0.3-1.2); BILIRUBIN,CONJUGATED 0.41 mg/dL (0.0-0.2); BUN CREA RATIO 52.0 (7.0-25.0); CHOL HDL RATIO 4.5 (0-5.0); CREATININE SERUM 0.46 mg/dL (0.55-1.02); GFR 130.05; GLOBULINA 3.6 G/DL (2.4-3.5); GLUCOSE FASTING 99.0 mg/dL (65-100); HDL 15.0 mg/dl (40-60); LDL 37.0 mg/dl (0-130); OSMOLALITY SERUM 295.0 MOSM/KG (275-295); VLDL 15.0 (0-39)
[2024-12-24 07:16] LABS: INR 1.39
[2024-12-24 07:59] LABS: UREA CLEARANCE 24.1 ML/MIN
[2024-12-24] MEDS ORDERED: MAGNESIUM SULFATE IN WATER 50 ML IV NR (12:15)
[2024-12-24] MEDS ORDERED: ANIDULAFUNGIN 100 MG VIAL IV NR (17:50)
[2024-12-24] MEDS ORDERED: VANCOMYCIN HCL 1,000 MG VIAL ONE (21:04)
[2024-12-25] VITALS (21 sets, daily range): BP systolic 99–178; BP diastolic 39–99; O2SAT 98–100
[2024-12-25 07:07] LABS: BASO % 0.2 % (0.1-1.2); EOS # 0.08 (0.04-0.54); EOS % 0.5 % (0.7-7.0); LYMPH # 0.76 (1.18-3.74); LYMPH % 4.4 % (19.3-53.1); MEAN PLATELET VOLUME 9.50 fl (9.4-12.4); MONO # 0.75 (0.24-0.82); MONO % 4.3 % (4.7-12.5); NEUT # 15.31 (1.56-6.13); NEUT % 88.6 % (34.0-71.1); RED CELL DISTRIBUTION WIDTH 16.7 % (11.6-14.4)
[2024-12-25] MEDS ORDERED: MIDODRINE HCL 5 MG TABLET PO ONE (09:03)
[2024-12-25] MEDS ORDERED: VANCOMYCIN HCL 125 MG CAPSULE PO SCH (09:03)
[2024-12-25] MEDS ORDERED: PANTOPRAZOLE SODIUM 40 MG/VIAL VIAL IV SCH (09:03)
[2024-12-25] MEDS ORDERED: SODIUM CHLORIDE 0.45 % 1,000 ML IV SCH (09:03)
[2024-12-25 10:37] LABS: ALT/SGPT 7.0 U/L (12-78); AST/SGOT 11.0 U/L (15-37); BILIRUBIN TOTAL 0.51 mg/dL (0.3-1.2); BUN CREA RATIO 53.0 (7.0-25.0); CREATININE SERUM 0.32 mg/dL (0.55-1.02); GFR 197.69; GLOBULINA 3.7 G/DL (2.4-3.5); GLUCOSE FASTING 106.0 mg/dL (65-100); OSMOLALITY SERUM 289.0 MOSM/KG (275-295)
[2024-12-25 14:31] LABS: BASO % 0.2 % (0.1-1.2); EOS # 0.12 (0.04-0.54); EOS % 0.5 % (0.7-7.0); LYMPH # 0.95 (1.18-3.74); LYMPH % 3.7 % (19.3-53.1); MEAN PLATELET VOLUME 9.40 fl (9.4-12.4); MONO # 0.99 (0.24-0.82); MONO % 3.9 % (4.7-12.5); NEUT # 22.74 (1.56-6.13); NEUT % 89.7 % (34.0-71.1); RED CELL DISTRIBUTION WIDTH 16.4 % (11.6-14.4)
[2024-12-25] MEDS ORDERED: ANIDULAFUNGIN 100 MG VIAL IV SCH (17:00)
[2024-12-25] MEDS ORDERED: METHYLPREDNISOLONE SOD SUCC 40 MG VIAL IV NR (18:45)
[2024-12-25] MEDS ORDERED: DIPHENHYDRAMINE HCL 50 MG/ML VIAL 1ML IV NR (18:45)
[2024-12-26 04:03] VITALS: BP 111/54; O2SAT 100
[2024-12-26 07:00] VITALS: BP 115/52; O2SAT 100
[2024-12-26 09:00] LABS: BASO % 0.3 % (0.1-1.2); EOS # 0.00 (0.04-0.54); EOS % 0.0 % (0.7-7.0); LYMPH # 0.82 (1.18-3.74); LYMPH % 3.5 % (19.3-53.1); MEAN PLATELET VOLUME 9.40 fl (9.4-12.4); MONO # 0.34 (0.24-0.82); MONO % 1.4 % (4.7-12.5); NEUT # 21.89 (1.56-6.13); NEUT % 92.9 % (34.0-71.1); RED CELL DISTRIBUTION WIDTH 17.1 % (11.6-14.4)
[2024-12-26] MEDS ORDERED: MIDODRINE HCL 5 MG TABLET PO SCH (09:00)
[2024-12-26 09:17] LABS: GLUCOSE FASTING 114.0 mg/dL (65-100); OSMOLALITY SERUM 291.0 MOSM/KG (275-295)
[2024-12-26 09:19] LABS: BUN CREA RATIO 59.0 (7.0-25.0); CREATININE SERUM 0.27 mg/dL (0.55-1.02); GFR 240.51
[2024-12-26 12:00] VITALS: BP 120/52; O2SAT 99
[2024-12-26] MEDS ORDERED: SOD FERRIC GLUC COMPLX/SUCROSE 62.5 MG in 0.9 % SODIUM CHLORIDE 50 ML IV NR (13:00)
[2024-12-26 15:03] VITALS: BP 117/52; O2SAT 100
[2024-12-26 19:19] VITALS: BP 108/50; O2SAT 93
[2024-12-27 01:37] VITALS: BP 115/70; O2SAT 96
[2024-12-27 08:21] VITALS: BP 120/74; O2SAT 95
[2024-12-27] MEDS ORDERED: SOD FERRIC GLUC COMPLX/SUCROSE 62.5 MG in 0.9 % SODIUM CHLORIDE 50 ML IV SCH (09:00)
[2024-12-27 16:00] VITALS: BP 124/79; O2SAT 98
[2024-12-27] MEDS ORDERED: ACETAMINOPHEN 500 MG GEL..CAP PO PRN ×2 (19:15→19:30)
[2024-12-27] MEDS ORDERED: PANTOPRAZOLE SODIUM 40 MG TABLET.DR PO SCH (21:00)
[2024-12-27 23:35] LABS: URINE APPEARANCE Turbid; URINE BILIRRUBIN Negative (NEGATIVE); URINE BLOOD Moderate; URINE COLOR Yellow; URINE GLUCOSE Negative (NEGATIVE); URINE KETONE Negative (NEGATIVE); URINE LEUKOCYTE Large; URINE NITRATE Negative; URINE PROTEIN 30 (NEGATIVE); URINE UROBILINOGEN 0.2 E.U./dl
[2024-12-27 23:36] LABS: URINE BACTERIA 577.1 uL (0.0-1933); URINE CAST 9.01 uL (0.0-1.40); URINE EPITHELIAL CELLS 90.1 uL (0.0-38.8); URINE RBC 374.7 uL (0.0-20.8)
[2024-12-28 00:14] LABS: URINE WBC > 5548.3 uL (0.0-23.2); URINE YEAST FEW /hpf
[2024-12-28 02:48] VITALS: BP 108/57; O2SAT 98
[2024-12-28 06:54] LABS: BASO % 0.3 % (0.1-1.2); EOS # 0.11 (0.04-0.54); EOS % 0.7 % (0.7-7.0); LYMPH # 1.24 (1.18-3.74); LYMPH % 8.0 % (19.3-53.1); MEAN PLATELET VOLUME 9.20 fl (9.4-12.4); MONO # 1.15 (0.24-0.82); MONO % 7.4 % (4.7-12.5); NEUT # 12.75 (1.56-6.13); NEUT % 82.3 % (34.0-71.1); RED CELL DISTRIBUTION WIDTH 17.1 % (11.6-14.4)
[2024-12-28 07:46] LABS: BUN CREA RATIO 39.0 (7.0-25.0); CREATININE SERUM 0.44 mg/dL (0.55-1.02); GFR 136.9; GLUCOSE FASTING 73.0 mg/dL (65-100); OSMOLALITY SERUM 296.0 MOSM/KG (275-295)
[2024-12-28 08:00] VITALS: BP 109/52; O2SAT 98
[2024-12-28] MEDS ORDERED: MAGNESIUM SULFATE IN WATER 50 ML IV NR (09:30)
[2024-12-28] MEDS ORDERED: COSYNTROPIN 0.25 MG VIAL IV ONE (11:00)
[2024-12-28 16:38] VITALS: BP 190/77; O2SAT 94
[2024-12-29 01:19] VITALS: BP 127/73; O2SAT 98
[2024-12-29 08:00] VITALS: BP 135/64; O2SAT 96
[2024-12-29 17:20] VITALS: BP 134/70; O2SAT 96
[2024-12-30 01:47] VITALS: BP 109/67; O2SAT 98
[2024-12-30 08:31] VITALS: BP 138/79; O2SAT 98
[2024-12-30 16:00] VITALS: BP 142/76; O2SAT 97
[2024-12-31 01:18] VITALS: BP 133/76; O2SAT 97
[2024-12-31 06:09] LABS: BASO % 0.2 % (0.1-1.2); EOS # 0.04 (0.04-0.54); EOS % 0.2 % (0.7-7.0); LYMPH # 1.26 (1.18-3.74); LYMPH % 6.1 % (19.3-53.1); MEAN PLATELET VOLUME 9.30 fl (9.4-12.4); MONO # 1.29 (0.24-0.82); MONO % 6.2 % (4.7-12.5); NEUT # 17.78 (1.56-6.13); NEUT % 86.1 % (34.0-71.1); RED CELL DISTRIBUTION WIDTH 17.0 % (11.6-14.4)
[2024-12-31 06:47] LABS: AST/SGOT 13 U/L (15-37); BILIRUBIN TOTAL 0.40 mg/dL (0.3-1.2); BUN CREA RATIO 30 (7.0-25.0); CREATININE SERUM 0.46 mg/dL (0.55-1.02); GFR 130.05; GLOBULINA 3.7 G/DL (2.4-3.5); GLUCOSE FASTING 89 mg/dL (65-100); OSMOLALITY SERUM 292 MOSM/KG (275-295)
[2024-12-31 07:47] LABS: ALT/SGPT < 6 U/L (12-78)
[2024-12-31 08:00] VITALS: BP 146/66; O2SAT 98
[2024-12-31] MEDS ORDERED: VANCOMYCIN HCL 125 MG CAPSULE PO SCH (08:00)
[2024-12-31] MEDS ORDERED: MAGNESIUM SULFATE IN WATER 50 ML IV NR (08:15)
[2024-12-31] MEDS ORDERED: POTASSIUM CHLORIDE 20MEQ/100ML H2O PB IV NR ×2 (08:15→10:00)
[2024-12-31] MEDS ORDERED: VANCOMYCIN HCL 125 MG/7.5 ML BLIST.PACK PO SCH (12:00)
[2024-12-31 16:50] VITALS: BP 138/67; O2SAT 96
[2025-01-01 00:33] VITALS: BP 107/66; O2SAT 96
[2025-01-01 06:13] LABS: BASO % 0.3 % (0.1-1.2); EOS # 0.04 (0.04-0.54); EOS % 0.3 % (0.7-7.0); LYMPH # 1.36 (1.18-3.74); LYMPH % 8.5 % (19.3-53.1); MEAN PLATELET VOLUME 9.50 fl (9.4-12.4); MONO # 1.52 (0.24-0.82); MONO % 9.6 % (4.7-12.5); NEUT # 12.76 (1.56-6.13); NEUT % 80.1 % (34.0-71.1); RED CELL DISTRIBUTION WIDTH 17.2 % (11.6-14.4)
[2025-01-01 06:36] LABS: BUN CREA RATIO 23.0 (7.0-25.0); CREATININE SERUM 0.57 mg/dL (0.55-1.02); GFR 101.54; GLUCOSE FASTING 88.0 mg/dL (65-100); OSMOLALITY SERUM 290.0 MOSM/KG (275-295)
[2025-01-01 09:00] VITALS: BP 140/73; O2SAT 99
[2025-01-01] MEDS ORDERED: POTASSIUM CHLORIDE 20MEQ/100ML H2O PB IV SCH ×2 (10:42→14:00)
[2025-01-01] MEDS ORDERED: POTASSIUM PHOS,M-BASIC-D-BASIC 3 MM/ML VIAL IV ONE (10:45)
[2025-01-01] MEDS ORDERED: DIATRIZOATE MEGLUMINE, SODIUM 30 ML BOTTLE PO NR (11:00)
[2025-01-01] MEDS ORDERED: MAGNESIUM SULFATE IN WATER 50 ML IV NR (12:00)
[2025-01-01 16:00] VITALS: BP 130/70; O2SAT 97
[2025-01-01] MEDS ORDERED: POTASSIUM PHOS,M-BASIC-D-BASIC 3 MM/ML VIAL IV NR (16:00)
[2025-01-02 00:40] VITALS: BP 137/72; O2SAT 97
[2025-01-02 06:56] LABS: URINE APPEARANCE Cloudy; URINE BILIRRUBIN Negative (NEGATIVE); URINE BLOOD Small; URINE COLOR Yellow; URINE GLUCOSE Negative (NEGATIVE); URINE KETONE Negative (NEGATIVE); URINE LEUKOCYTE Large; URINE NITRATE Negative; URINE PROTEIN 30 (NEGATIVE); URINE UROBILINOGEN 0.2 E.U./dl
[2025-01-02 07:00] LABS: URINE BACTERIA 296.3 uL (0.0-1933); URINE EPITHELIAL CELLS 1.6 uL (0.0-38.8); URINE RBC 37.1 uL (0.0-20.8); URINE WBC 2350.8 uL (0.0-23.2)
[2025-01-02 07:04] LABS: URINE CAST 0.87 uL (0.0-1.40)
[2025-01-02 08:00] VITALS: BP 130/72; O2SAT 98
[2025-01-02 18:26] VITALS: BP 135/77; O2SAT 97
[2025-01-03 01:27] VITALS: BP 109/68; O2SAT 96
[2025-01-03 07:08] LABS: BASO % 0.2 % (0.1-1.2); EOS # 0.05 (0.04-0.54); EOS % 0.2 % (0.7-7.0); LYMPH # 1.12 (1.18-3.74); LYMPH % 5.5 % (19.3-53.1); MEAN PLATELET VOLUME 9.80 fl (9.4-12.4); MONO # 1.50 (0.24-0.82); MONO % 7.3 % (4.7-12.5); NEUT # 17.53 (1.56-6.13); NEUT % 85.8 % (34.0-71.1); RED CELL DISTRIBUTION WIDTH 17.2 % (11.6-14.4)
[2025-01-03 07:24] LABS: BUN CREA RATIO 36.0 (7.0-25.0); CREATININE SERUM 0.36 mg/dL (0.55-1.02); GFR 172.57; GLUCOSE FASTING 88.0 mg/dL (65-100); OSMOLALITY SERUM 290.0 MOSM/KG (275-295)
[2025-01-03] MEDS ORDERED: MAGNESIUM SULFATE IN WATER 50 ML IV NR (08:00)
[2025-01-03 11:07] VITALS: BP 139/75; O2SAT 95
[2025-01-03] MEDS ORDERED: ENOXAPARIN SODIUM 40 MG/0.4 ML SYRINGE SUBCUTANEO SCH (11:57)
[2025-01-03] MEDS ORDERED: POTASSIUM CHLORIDE 20MEQ/100ML H2O PB IV SCH (12:00)
[2025-01-03] MEDS ORDERED: POTASSIUM PHOS,M-BASIC-D-BASIC 3 MM/ML VIAL IV NR (13:00)
[2025-01-03 16:00] VITALS: BP 126/74; O2SAT 94
[2025-01-04 01:59] VITALS: BP 128/77; O2SAT 98
[2025-01-04] MEDS ORDERED: VITAMIN B COMPLEX/LYSINE 15 ML BLIST.PACK PO SCH (09:00)
[2025-01-04 09:01] VITALS: BP 129/74; O2SAT 96
[2025-01-04] MEDS ORDERED: ACETAMINOPHEN 500 MG GEL..CAP PO PRN (09:30)
[2025-01-04] MEDS ORDERED: MEGESTROL ACETATE 40 MG TABLET PO SCH (13:00)
[2025-01-04 16:19] VITALS: BP 159/71; O2SAT 97
[2025-01-04] MEDS ORDERED: APIXABAN 5 MG TABLET PO SCH (21:00)
[2025-01-05 00:44] VITALS: BP 118/68; O2SAT 96
[2025-01-05 07:32] LABS: BASO % 0.3 % (0.1-1.2); EOS # 0.04 (0.04-0.54); EOS % 0.2 % (0.7-7.0); LYMPH # 1.37 (1.18-3.74); LYMPH % 7.8 % (19.3-53.1); MEAN PLATELET VOLUME 9.50 fl (9.4-12.4); MONO # 1.29 (0.24-0.82); MONO % 7.3 % (4.7-12.5); NEUT # 14.71 (1.56-6.13); NEUT % 83.5 % (34.0-71.1); RED CELL DISTRIBUTION WIDTH 16.4 % (11.6-14.4)
[2025-01-05 07:58] LABS: BUN CREA RATIO 42.0 (7.0-25.0); CREATININE SERUM 0.33 mg/dL (0.55-1.02); GFR 190.79; GLUCOSE FASTING 88.0 mg/dL (65-100); OSMOLALITY SERUM 292.0 MOSM/KG (275-295)
[2025-01-05 08:00] VITALS: BP 126/68; O2SAT 95
[2025-01-05] MEDS ORDERED: MIDODRINE HCL 5 MG TABLET PO SCH (09:00)
[2025-01-05] MEDS ORDERED: MULTIVIT INFUSN,ADULT 4,VIT K 10 ML VIAL IV SCH (09:06)
[2025-01-05] MEDS ORDERED: MAGNESIUM CHLORIDE 70 MG TABLET.DR PO SCH (09:06)
[2025-01-05] MEDS ORDERED: MAGNESIUM SULFATE IN WATER 50 ML IV NR (09:15)
[2025-01-05] MEDS ORDERED: DEXTROSE 5 % IN WATER 500 ML IV SCH (09:15)
[2025-01-05] MEDS ORDERED: POTASSIUM CHLORIDE 20MEQ/100ML H2O PB IV SCH (12:00)
[2025-01-05 16:00] VITALS: BP 143/79; O2SAT 97
[2025-01-06 00:22] VITALS: BP 135/76; O2SAT 98
[2025-01-06 08:00] VITALS: BP 137/77; O2SAT 96
[2025-01-06 16:00] VITALS: BP 128/62; O2SAT 97
[2025-01-07 00:12] VITALS: BP 103/63; O2SAT 96
[2025-01-07 08:25] LABS: BASO % 0.3 % (0.1-1.2); EOS # 0.09 (0.04-0.54); EOS % 0.5 % (0.7-7.0); LYMPH # 1.83 (1.18-3.74); LYMPH % 10.1 % (19.3-53.1); MEAN PLATELET VOLUME 9.70 fl (9.4-12.4); MONO # 1.30 (0.24-0.82); MONO % 7.1 % (4.7-12.5); NEUT # 14.75 (1.56-6.13); NEUT % 81.0 % (34.0-71.1); RED CELL DISTRIBUTION WIDTH 17.1 % (11.6-14.4)
[2025-01-07 08:54] VITALS: BP 147/85; O2SAT 98
[2025-01-07 09:04] LABS: BUN CREA RATIO 41.0 (7.0-25.0); CREATININE SERUM 0.32 mg/dL (0.55-1.02); GFR 197.69; GLUCOSE FASTING 78.0 mg/dL (65-100); OSMOLALITY SERUM 291.0 MOSM/KG (275-295)
[2025-01-07] MEDS ORDERED: POTASSIUM CHLORIDE IN WATER 100 ML IV SCH (09:27)
[2025-01-07] MEDS ORDERED: MAGNESIUM SULFATE/D5W 1GM/100ML PIGGYBAG IV NR (10:00)
[2025-01-07 16:03] VITALS: BP 143/78; O2SAT 97
[2025-01-07] MEDS ORDERED: LevETIRAcetam 500 MG TAB. PO SCH (17:00)
[2025-01-08 01:39] VITALS: BP 147/78; O2SAT 97
[2025-01-08 09:40] VITALS: BP 167/80; O2SAT 98
[2025-01-08] MEDS ORDERED: LISINOPRIL 10 MG TABLET PO SCH (13:10)
[2025-01-08] MEDS ORDERED: ELIQUIS5 MG PO (13:46)
[2025-01-08] MEDS ORDERED: VANCOMYCIN HCL1 GM PO (13:46)
[2025-01-08] MEDS ORDERED: PANTOPRAZOLE SO40 MG PO (13:46)
[2025-01-08] MEDS ORDERED: KEPPRA500 MG PO (13:46)
[2025-01-08] MEDS ORDERED: MEGESTROL ACETA40 MG PO (13:46)
[2025-01-08] MEDS ORDERED: INTESTINEX680 M1 PO (13:46)
[2025-01-08] MEDS ORDERED: LOPRESSOR25 MG PO (13:46)
[2025-01-08] MEDS ORDERED: PROTEINEX-18 LI30 ML PO (13:46)
[2025-01-08] MEDS ORDERED: LISINOPRIL10 MG PO (13:46)
[2025-01-08 16:21] VITALS: BP 130/65; O2SAT 99
== END 2025-01-08 18:04 | disposition designated cancer center or children's hospital (05) | DRG 335 ==
LOC: ER 11:05 → SURH 19:09 → ICU 12-19 13:21 → SURH 12-26 19:13
PROVIDERS: Emergency Medicine; General Practice; Internal Medicine; Internal Medicine Geriatric Medicine; Internal Medicine Infectious Disease; ADMIT Surgery; ATTEND Surgery
PROC: BW21ZZZ Computerized Tomography (CT Scan) of Abdomen and Pelvis (ICD-10-PCS; 2024-12-16)
PROC: B246ZZZ Ultrasonography of Right and Left Heart (ICD-10-PCS; 2024-12-17)
PROC: 02HV33Z Insertion of Infusion Device into Superior Vena Cava, Percutaneous Approach (ICD-10-PCS; 2024-12-17)
PROC: 4A12X4Z Monitoring of Cardiac Electrical Activity, External Approach (ICD-10-PCS; 2024-12-17)
PROC: 30233N1 Transfusion of Nonautologous Red Blood Cells into Peripheral Vein, Percutaneous Approach (ICD-10-PCS; 2024-12-17)
PROC: 0W9F0ZZ Drainage of Abdominal Wall, Open Approach (ICD-10-PCS; 2024-12-19)
PROC: 0DTJ0ZZ Resection of Appendix, Open Approach (ICD-10-PCS; 2024-12-19)
PROC: 0DNW0ZZ Release Peritoneum, Open Approach (ICD-10-PCS; principal; 2024-12-19 11:00)
PROC: BW21ZZZ Computerized Tomography (CT Scan) of Abdomen and Pelvis (ICD-10-PCS; 2025-01-01)
PROC: 0TP98DZ Removal of Intraluminal Device from Ureter, Via Natural or Artificial Opening Endoscopic (ICD-10-PCS; 2025-01-03)
DX: K66.0 Peritoneal adhesions (postprocedural) (postinfection) (principal); K35.33 Acute appendicitis with perforation, localized peritonitis, and gangrene, with abscess; K63.1 Perforation of intestine (nontraumatic); C19 Malignant neoplasm of rectosigmoid junction; I82.621 Acute embolism and thrombosis of deep veins of right upper extremity; I38 Endocarditis, valve unspecified; N13.39 Other hydronephrosis; N39.0 Urinary tract infection, site not specified; B96.29 Other Escherichia coli [E. coli] as the cause of diseases classified elsewhere; B96.5 Pseudomonas (aeruginosa) (mallei) (pseudomallei) as the cause of diseases classified elsewhere; Z93.3 Colostomy status; K63.89 Other specified diseases of intestine; D63.0 Anemia in neoplastic disease; I10 Essential (primary) hypertension; E78.49 Other hyperlipidemia; B96.89 Other specified bacterial agents as the cause of diseases classified elsewhere; D72.828 Other elevated white blood cell count; Z96.0 Presence of urogenital implants; Z95.828 Presence of other vascular implants and grafts